=== PATIENT | female | born 1985 | race Hispanic/Latino ===

== ENCOUNTER 2025-01-15 11:58 | Day surgery (SDC) | payer OTHER ==
--- NOTE | 2025-01-15 11:28 | EKG ---
Test Date: 2025-01-12 Test Time: 13:37:09 [employer]: MEASUREMENT RESULTS: Intervals: Rate: 68 UT: 134 QRSD: 84 QT: 418 QTc: 444 [place]: P: -3 UT: 134 QRS: 43 T: 22 INTERPRETIVE STATEMENTS: Normal sinus rhythm Normal ECG No previous ECG available for comparison Electronically Signed On 01-15-25 11:22:11 CDT by Gumaro Jenkins
[2025-01-15] MEDS ORDERED: propofoL 200 MG/20 ML VIAL IV ONE ×6 (12:49→13:27)
[2025-01-15] MEDS ORDERED: LIDOCAINE 1% MPF 5 ML VIAL ONE (12:50)
[2025-01-15] MEDS: Ringers Lactate 1,000 ML IV ONE (12:58)
[2025-01-15 13:12] LABS: Urine Specific Gravity/Preg >1.030 (1.005-1.030)
[2025-01-15 16:22] VITALS: TEMP 97.3; O2SAT 100
[2025-01-15 16:23] VITALS: BP 113/79
== END 2025-01-15 15:10 | disposition home or self-care (01) ==
LOC: OR 11:58
PROVIDERS: ATTEND Surgery
PROC: 0DBH8ZX Excision of Cecum, Via Natural or Artificial Opening Endoscopic, Diagnostic (ICD-10-PCS; 2025-01-15)
PROC: 0DB98ZX Excision of Duodenum, Via Natural or Artificial Opening Endoscopic, Diagnostic (ICD-10-PCS; 2025-01-15)
PROC: 0DB68ZX Excision of Stomach, Via Natural or Artificial Opening Endoscopic, Diagnostic (ICD-10-PCS; 2025-01-15)
PROC: 0DB58ZX Excision of Esophagus, Via Natural or Artificial Opening Endoscopic, Diagnostic (ICD-10-PCS; 2025-01-15)
PROC: 0DBL8ZX Excision of Transverse Colon, Via Natural or Artificial Opening Endoscopic, Diagnostic (ICD-10-PCS; principal; 2025-01-15 15:30)
PROC: 0DBN8ZX Excision of Sigmoid Colon, Via Natural or Artificial Opening Endoscopic, Diagnostic (ICD-10-PCS; 2025-01-15 15:30)
DX: R19.4 Change in bowel habit (principal); R10.13 Epigastric pain; K51.30 Ulcerative (chronic) rectosigmoiditis without complications; K63.89 Other specified diseases of intestine; K64.8 Other hemorrhoids; K29.80 Duodenitis without bleeding; K22.5 Diverticulum of esophagus, acquired; K29.50 Unspecified chronic gastritis without bleeding
CPT/HCPCS: 45380; 43239; 93005; 88312; 81025; 88305; J2704 ×5; J2003; J7120